=== PATIENT | male | born 1975 | race African-American/Black ===

== ENCOUNTER → 2018-06-30 | Emergency (ER) | payer OTHER ==
[~2018-06-30] VITALS: Ht 175.3 cm; Wt 79.4 kg
== END | disposition left against medical advice (07) ==
LOC: ER 22:04
DX: Z53.20 Procedure and treatment not carried out because of patient's decision for unspecified reasons (principal)

== ENCOUNTER 2019-01-26 13:10 | Emergency (ER) | payer OTHER ==
[~2019-01-26] VITALS: Ht 175.3 cm; Wt 81.6 kg
== END 2019-01-26 15:10 | disposition home or self-care (01) ==
LOC: ER 13:10
DX: R68.84 Jaw pain (principal)

== ENCOUNTER 2019-06-21 19:53 | Emergency (ER) | payer OTHER ==
[~2019-06-21] VITALS: Ht 175.3 cm; Wt 79.4 kg
== END 2019-06-21 22:50 | disposition home or self-care (01) ==
LOC: ER 19:53
DX: R51 Headache (principal)

== ENCOUNTER 2019-11-09 20:20 | Emergency (ER) | payer OTHER ==
[~2019-11-09] VITALS: Ht 175.3 cm; Wt 79.4 kg
[2019-11-09] MEDS ORDERED: TUSNEL LIQUID178 ML PO (22:41)
[2019-11-09] MEDS ORDERED: XOFLUZA40 MG PO (22:41)
[2019-11-09] MEDS ORDERED: DOLOGEN CAPLET1 EACH PO (22:41)
== END 2019-11-09 22:47 | disposition home or self-care (01) ==
LOC: ER 20:20
DX: J11.1 Influenza due to unidentified influenza virus with other respiratory manifestations (principal)

== ENCOUNTER → 2021-04-21 | Emergency (ER) | payer OTHER ==
[~2021-04-21] VITALS: Ht 175.3 cm; Wt 81.6 kg
[~2021-04-21] MED LIST: ACETAMINOPHEN650 M2 PO; AMOX1TAB5 PO; DOLOGEN CAPLET1 EACH PO; INTESTINEX680 M2 PO; NORFLEX100MG PO; TUSNEL LIQUID178 ML PO; XOFLUZA40 MG PO
== END | disposition home or self-care (01) ==
LOC: ER 18:47
DX: S81.021A Laceration with foreign body, right knee, initial encounter (principal); S20.213A Contusion of bilateral front wall of thorax, initial encounter; W22.8XXA Striking against or struck by other objects, initial encounter; Y93.89 Activity, other specified; Y92.89 Other specified places as the place of occurrence of the external cause; Y99.8 Other external cause status

== ENCOUNTER 2021-04-28 14:14 | Emergency (ER) | payer OTHER ==
[~2021-04-28] VITALS: Ht 175.3 cm; Wt 81.6 kg
== END 2021-04-28 16:56 | disposition home or self-care (01) ==
LOC: ER 14:14
DX: S81.011D Laceration without foreign body, right knee, subsequent encounter (principal); W18.39XD Other fall on same level, subsequent encounter

== ENCOUNTER 2021-05-02 10:36 | Emergency (ER) | payer OTHER ==
[~2021-05-02] VITALS: Ht 175.3 cm; Wt 81.6 kg
== END 2021-05-02 12:24 ==
LOC: ER 10:36
DX: Z48.02 Encounter for removal of sutures (principal)

== ENCOUNTER → 2021-05-11 | Emergency (ER) | payer OTHER ==
[~2021-05-11] VITALS: Ht 175.3 cm; Wt 81.6 kg
== END | disposition home or self-care (01) ==
LOC: ER
DX: T81.89XA Other complications of procedures, not elsewhere classified, initial encounter (principal); Z48.02 Encounter for removal of sutures; S81.021D Laceration with foreign body, right knee, subsequent encounter; W45.8XXD Other foreign body or object entering through skin, subsequent encounter

== ENCOUNTER 2021-05-14 16:11 | Emergency (ER) | payer OTHER ==
[~2021-05-14] VITALS: Ht 170.2 cm; Wt 70.3 kg
== END 2021-05-14 17:31 | disposition home or self-care (01) ==
LOC: ER 16:11
DX: L08.89 Other specified local infections of the skin and subcutaneous tissue (principal); S81.02 Laceration with foreign body of knee; W45.8XXS Other foreign body or object entering through skin, sequela

== ENCOUNTER 2021-07-19 22:08 | Emergency (ER) | payer OTHER ==
[~2021-07-19] VITALS: Ht 175.3 cm; Wt 81.6 kg
== END 2021-07-20 12:46 | disposition home or self-care (01) ==
LOC: ER 22:08
DX: M62.82 Rhabdomyolysis (principal)

== ENCOUNTER 2021-10-13 07:30 | Emergency (ER) | payer OTHER ==
[~2021-10-13] VITALS: Ht 175.3 cm; Wt 78.0 kg
[2021-10-13] MEDS ORDERED: NORFLEX100MG PO (13:23)
[2021-10-13] MEDS ORDERED: CYCLOBENZAPRINE10 MG PO (13:23)
== END 2021-10-13 13:28 | disposition home or self-care (01) ==
LOC: ER 07:30
DX: M54.2 Cervicalgia (principal); M62.838 Other muscle spasm; J45.998 Other asthma

== ENCOUNTER 2021-11-30 18:10 | Emergency (ER) | payer OTHER ==
[~2021-11-30] VITALS: Ht 175.3 cm; Wt 78.9 kg
[~2021-11-30 18:10] MED LIST changes: +CYCLOBENZAPRINE10 MG PO
[2021-11-30] MEDS ORDERED: PERCOCET 5-3251 EACH PO (20:43)
[2021-11-30] MEDS ORDERED: MEDROLPACK PO (20:43)
== END 2021-11-30 20:59 | disposition home or self-care (01) ==
LOC: ER 18:10
DX: M54.50 Low back pain, unspecified (principal)

== ENCOUNTER 2023-10-12 08:17 | Emergency (ER) | payer OTHER ==
[~2023-10-12] VITALS: Ht 175.3 cm; Wt 79.4 kg
[~2023-10-12 08:17] MED LIST changes: +MEDROLPACK PO; +PERCOCET 5-3251 EACH PO
[2023-10-12 09:04] LABS: HEMATOCRIT 44.5 % (39.0-48.0); HEMOGLOBIN 14.9 g/dL (13-16.00); MEAN CELL VOLUME 89.1 fL (80.0-100.00); MEAN CORPUSCULAR HEMOGLOBIN 29.8 pg (27.00-32.0); MEAN CORPUSCULAR HGB CONC 33.5 g/dl (32.0-36.0); PLATELET COUNT 244 K/uL (150-450); RED CELL DISTRIBUTION WIDTH 13.8 % (11.5-14.5)
[2023-10-12 09:26] LABS: ALBUMIN 3.6 gm/dL (3.4-5.0); BILIRUBIN TOTAL 0.39 mg/dL (0.3-1.2); CALCIUM 9.2 mg/dL (8.5-10.1); CREATININE SERUM 0.98 mg/dL (0.70-1.30); GFR 81.29; GLOBULINA 3.7 G/DL (2.4-3.5); POTASSIUM 3.78 mEq/L (3.5-5.1); TOTAL PROTEIN 7.3 gm/dL (6.4-8.2)
[2023-10-12 10:21] LABS: PH,URINE 6.5 (5.0-8.0); URINE APPEARANCE Clear; URINE BILIRRUBIN Negative (NEGATIVE); URINE BLOOD Negative; URINE COLOR Yellow; URINE GLUCOSE Negative (NEGATIVE); URINE LEUKOCYTE Negative; URINE NITRATE Negative; URINE PROTEIN Negative (NEGATIVE); URINE UROBILINOGEN 0.2 E.U./dl
[2023-10-12 10:29] LABS: URINE BACTERIA 2.5 uL (0.0-1933); URINE EPITHELIAL CELLS 0.1 uL (0.0-38.8); URINE RBC 1.8 uL (0.0-20.8); URINE WBC 0.3 uL (0.0-23.2)
[2023-10-12] MEDS ORDERED: DOLOGEN CAPLET1 EACH PO (11:09)
== END 2023-10-12 12:32 | disposition home or self-care (01) ==
LOC: ER
PROVIDERS: General Practice
DX: N50.3 Cyst of epididymis (principal); Z88.6 Allergy status to analgesic agent; Z91.013 Allergy to seafood

== ENCOUNTER 2024-08-01 19:11 | Emergency (ER) | payer OTHER ==
[~2024-08-01] VITALS: Ht 175.3 cm; Wt 81.6 kg
[2024-08-01] MEDS ORDERED: DEXAMETHASONE SODIUM PHOSPHATE 4 MG/ML VIAL IM STA (20:51)
[2024-08-01] MEDS ORDERED: ORPHENADRINE CITRATE 30 MG/ML AMPUL IM STA (20:51)
== END 2024-08-01 21:08 | disposition home or self-care (01) ==
LOC: ER 19:13
DX: G24.3 Spasmodic torticollis (principal); Z88.6 Allergy status to analgesic agent; Z91.013 Allergy to seafood

== ENCOUNTER 2025-09-02 21:59 | Emergency (ER) | payer OTHER ==
[~2025-09-02] VITALS: Ht 175.3 cm; Wt 81.6 kg
[2025-09-02 23:39] VITALS: BP 115/72; O2SAT 97
[2025-09-03] MEDS ORDERED: DEXAMETHASONE SODIUM PHOSPHATE 4 MG/ML VIAL IM ONE (00:15)
[2025-09-03] MEDS ORDERED: ORPHENADRINE CITRATE 30 MG/ML AMPUL IM ONE (00:15)
[2025-09-03] MEDS ORDERED: NEURONTIN300 MG PO (02:32)
[2025-09-03] MEDS ORDERED: NORFLEX100MG PO (02:32)
== END 2025-09-03 02:37 | disposition home or self-care (01) ==
LOC: ER 21:59
DX: M54.50 Low back pain, unspecified (principal); Z91.013 Allergy to seafood; Z88.6 Allergy status to analgesic agent; M62.838 Other muscle spasm